=== PATIENT | male | born 1950 | race African-American/Black ===

== ENCOUNTER 2021-08-18 04:50 | Inpatient (IN) | payer OTHER ==
[~2021-08-18] VITALS: Ht 170.2 cm; Wt 71.7 kg
[2021-08-18] VITALS (58 sets, daily range): BP systolic 91–140; BP diastolic 61–90
[2021-08-18] MEDS ORDERED: LABETALOL 5MG/ML SYR 20 MG/4 ML SYRINGE IV SCH (05:30)
[2021-08-18] MEDS ORDERED: ETOMIDATE 2MG/ML 10ML VIAL IV ONE (05:30)
[2021-08-18] MEDS ORDERED: PROPOFOL 10MG/ML 100ML 100 ML IV ONE (05:30)
[2021-08-18] MEDS ORDERED: LEVETIRACETAM 1000MG PREMIX 100 ML IV ONE (05:30)
[2021-08-18] MEDS ORDERED: SUCCINYLCHOLINE CHLORIDE 200MG/10ML IV ONE (05:30)
[2021-08-18] MEDS ORDERED: LABETALOL 5MG/ML SYR 20 MG/4 ML SYRINGE IV ONE ×3 (05:45→06:30)
[2021-08-18] MEDS ORDERED: LABETALOL HCL 100 MG in DEXT 5% WATER 80 ML IV STA ×2 (05:54→06:23)
[2021-08-18] MEDS ORDERED: DEXAMETHASONE 10 MG/ML VIAL IV ONE (06:00)
[2021-08-18] MEDS ORDERED: MANNITOL 20% (20GM/100ML) BAG 500ML PREMIX IV SCH (06:00)
[2021-08-18 06:09] LABS: BASOPHILS % 0.1 % (0.0-2.0); EOSINOPHILS % 0.1 % (0.0-5.0); HEMATOCRIT. 28.1 % (42.0-52.0); HEMOGLOBIN. 9.5 g/dL (14.0-18.0); LYMPHOCYTES % 17.8 % (20.0-50.0); MEAN CORPUSCULAR HEMOGLOBIN 28.6 pg (28.0-32.0); MEAN CORPUSCULAR VOLUME 84.4 fL (80.0-94.0); MEAN PLATELET VOLUME 8.5 fl (7.4-10.4); MONOCYTES % 7.8 % (2.0-8.0); NEUTROPHILS % 74.2 % (40.0-76.0); PLATELET 84 x1000/uL (130-400); RED BLOOD CELL COUNT 3.33 mill/uL (4.7-6.1); RED CELL DISTRIBUTION WIDTH 15.3 % (11.6-14.6)
[2021-08-18 06:16] LABS: CHLORIDE 122 mEq/L (98-107)
[2021-08-18 06:27] LABS: ETHANOL BLOOD < 10 mg/dL
[2021-08-18] MEDS ORDERED: MORPHINE SULFATE 4 MG/ML CPJ (NOT FOR IM USE) IV SCH (06:30)
[2021-08-18] MEDS ORDERED: NICARDIPINE 100 MG in SODIUM CHLORIDE 0.9% 60 ML IV PRN ×2 (06:30→06:45)
[2021-08-18 07:51] LABS: INR 1.4; PROTHROMBIN TIME 14.6 sec (9.6-11.0)
[2021-08-18] MEDS ORDERED: ONDANSETRON HCL 4MG/2ML INJ IV PRN (08:00)
[2021-08-18] MEDS ORDERED: ACETAMINOPHEN 325MG TABLET PO PRN (08:00)
[2021-08-18] MEDS ORDERED: DEXT 5%/0.45% NACL 1000ML 1,000 ML IV SCH (08:43)
[2021-08-18] MEDS ORDERED: LEVETIRACETAM 500 MG in SODIUM CHLORIDE 0.9% 100 ML IV SCH (09:30)
[2021-08-18 09:57] LABS: BG BASE EXCESS -9.8 mmol/L (-2.0-2.0); BG CARBOXYHEMOGLOBIN 0.2 % (0.5-1.5); BG DEOXYHEMOGLOBIN 1.1 % (0.0-5.0); BG FRACTION INSPIRED OXYGEN 50; BG HCO3 ACT 13.3 mmol/L (22.0-26.0); BG METHEMOGLOBIN 0.3 % (0.0-1.5); BG OXYGEN SATURATION 98.9 % (92.0-98.5); BG OXYHEMOGLOBIN 98.4 % (94.0-97.0); BG PEEP (cmH2O) 0 cmH2O; BG PH 7.419 (7.350-7.450); BG SAMPLE SITE LEFT BRACHIAL; BG TOTAL HEMOGLOBIN 8.5 g/dL (12.0-18.0); BG VENT MODE VENT - AC
[2021-08-18] MEDS: PROPOFOL 10MG/ML 100ML 100 ML IV PRN ×2 (10:23→19:58)
[2021-08-18] MEDS: BLOOD SUGAR DIAGNOSTIC STRIP TEST SCH ×3 (11:23→20:23)
[2021-08-18] MEDS ORDERED: CEFAZOLIN 1000MG PREMIX 50 ML IV SCH (12:00)
[2021-08-18] MEDS: INSULIN LISPRO 100 UNITS/ML SUBCUT SCH ×3 (12:47→20:23)
[2021-08-18] MEDS: PANTOPRAZOLE SODIUM 40 MG/VIAL IV SCH (13:35)
[2021-08-18] MEDS ORDERED: SODIUM BICARBONATE 150 MEQ in DEXTROSE 5% WATER 1,000 ML IV SCH (14:00)
[2021-08-18] MEDS ORDERED: PROPOFOL 10MG/ML 100ML 100 ML IV PRN (15:00)
[2021-08-18] MEDS: METRONIDAZOLE 500 MG PREMIX 100 ML IV SCH ×2 (15:00→21:45)
[2021-08-18] MEDS ORDERED: SODIUM BICARBONATE 8.4% 1 MEQ/ML 50ML SYR IV NR (20:15)
[2021-08-18] MEDS: IPRATROPIUM/ALBUTEROL 0.5-3(2.5)MG/3ML NEB HHN SCH (20:55)
[2021-08-18] MEDS: LEVETIRACETAM 500MG PREMIX 100 ML IV SCH (20:57)
[2021-08-18] MEDS: MORPHINE SULFATE 4 MG/ML CPJ (NOT FOR IM USE) IV PRN (22:09)
[2021-08-18] MEDS: CEFAZOLIN 500MG in DEXTROSE 5% WATER 50ML IV SCH (23:17)
[2021-08-19] VITALS (87 sets, daily range): BP systolic 93–139; BP diastolic 61–89
[2021-08-19] MEDS: MORPHINE SULFATE 4 MG/ML CPJ (NOT FOR IM USE) IV PRN ×2 (00:34→21:00)
[2021-08-19] MEDS: IPRATROPIUM/ALBUTEROL 0.5-3(2.5)MG/3ML NEB HHN SCH ×4 (02:24→21:48)
[2021-08-19] MEDS: METRONIDAZOLE 500 MG PREMIX 100 ML IV SCH ×3 (05:24→21:35)
[2021-08-19] MEDS: BLOOD SUGAR DIAGNOSTIC STRIP TEST SCH ×4 (05:38→21:00)
[2021-08-19] MEDS: INSULIN LISPRO 100 UNITS/ML SUBCUT SCH ×4 (05:38→21:00)
[2021-08-19 05:49] LABS: HEMATOCRIT. 22.3 % (42.0-52.0); HEMOGLOBIN. 7.7 g/dL (14.0-18.0); LYMPHOCYTES % 9.9 % (20.0-50.0); MEAN CORPUSCULAR VOLUME 83.9 fL (80.0-94.0); MEAN PLATELET VOLUME 9.7 fl (7.4-10.4); MONOCYTES % 6.7 % (2.0-8.0); NEUTROPHILS % 83.4 % (40.0-76.0); PLATELET 58 x1000/uL (130-400); RED BLOOD CELL COUNT 2.66 mill/uL (4.7-6.1); RED CELL DISTRIBUTION WIDTH 14.7 % (11.6-14.6)
[2021-08-19 06:01] LABS: CHLORIDE 118 mEq/L (98-107)
[2021-08-19 06:19] LABS: CREATINE KINASE 77 IU/L (39-308)
[2021-08-19 08:39] LABS: BG CARBOXYHEMOGLOBIN 0.3 % (0.5-1.5); BG DEOXYHEMOGLOBIN 1.5 % (0.0-5.0); BG FRACTION INSPIRED OXYGEN 40; BG HCO3 ACT 13.1 mmol/L (22.0-26.0); BG METHEMOGLOBIN 0.4 % (0.0-1.5); BG OXYGEN SATURATION 98.5 % (92.0-98.5); BG OXYHEMOGLOBIN 97.8 % (94.0-97.0); BG PH 7.372 (7.350-7.450); BG PO2 199.8 mmHg (75.0-100.0); BG SAMPLE SITE RIGHT RADIAL; BG TOTAL HEMOGLOBIN 7.2 g/dL (12.0-18.0); BG VENT MODE VENT - AC
[2021-08-19] MEDS: PANTOPRAZOLE SODIUM 40 MG/VIAL IV SCH (09:24)
[2021-08-19] MEDS: LEVETIRACETAM 500MG PREMIX 100 ML IV SCH ×2 (09:24→20:52)
[2021-08-19] MEDS ORDERED: ATOR40TA70 MT (09:44)
[2021-08-19] MEDS ORDERED: P20 PO (09:45)
[2021-08-19] MEDS ORDERED: AMLO10TA80 PO (09:46)
[2021-08-19] MEDS ORDERED: FURO-152 PO (09:47)
[2021-08-19] MEDS ORDERED: ATEN50TA PO (09:47)
[2021-08-19] MEDS: SODIUM BICARBONATE 150 MEQ in DEXTROSE 5% WATER 1,000 ML IV SCH (11:33)
[2021-08-19] MEDS: CEFAZOLIN 500MG in DEXTROSE 5% WATER 50ML IV SCH (12:07)
[2021-08-19 12:48] LABS: HEPATITIS B SURFACE ANTIGEN NEGATIVE
[2021-08-19] MEDS ORDERED: HEPARIN 1000 UNITS/ML 10ML ONE (13:02)
[2021-08-19] MEDS: PROPOFOL 10MG/ML 100ML 100 ML IV PRN (18:30)
[2021-08-20] VITALS (99 sets, daily range): BP systolic 38–191; BP diastolic 24–140
[2021-08-20] MEDS: CEFAZOLIN 500MG in DEXTROSE 5% WATER 50ML IV SCH ×2 (00:33→12:51)
[2021-08-20] MEDS: IPRATROPIUM/ALBUTEROL 0.5-3(2.5)MG/3ML NEB HHN SCH ×3 (00:55→19:50)
[2021-08-20] MEDS: PROPOFOL 10MG/ML 100ML 100 ML IV PRN (02:34)
[2021-08-20] MEDS: MORPHINE SULFATE 4 MG/ML CPJ (NOT FOR IM USE) IV PRN ×2 (04:14→21:10)
[2021-08-20 04:21] LABS: BASOPHILS % 0.4 % (0.0-2.0); HEMATOCRIT. 27.3 % (42.0-52.0); HEMOGLOBIN. 9.6 g/dL (14.0-18.0); LYMPHOCYTES % 14.8 % (20.0-50.0); MEAN CORPUSCULAR HEMOGLOBIN 28.4 pg (28.0-32.0); MEAN CORPUSCULAR VOLUME 80.8 fL (80.0-94.0); MEAN PLATELET VOLUME 8.3 fl (7.4-10.4); MONOCYTES % 7.5 % (2.0-8.0); NEUTROPHILS % 77.3 % (40.0-76.0); PLATELET 81 x1000/uL (130-400); RED BLOOD CELL COUNT 3.37 mill/uL (4.7-6.1); RED CELL DISTRIBUTION WIDTH 15.2 % (11.6-14.6)
[2021-08-20] MEDS: METRONIDAZOLE 500 MG PREMIX 100 ML IV SCH ×3 (05:29→23:24)
[2021-08-20] MEDS: NOREPINEPHRINE 32 MG in DEXT 5% WATER 218 ML IV PRN (06:24)
[2021-08-20] MEDS: BLOOD SUGAR DIAGNOSTIC STRIP TEST SCH ×4 (06:28→20:52)
[2021-08-20] MEDS: INSULIN LISPRO 100 UNITS/ML SUBCUT SCH ×4 (06:28→20:56)
[2021-08-20] MEDS: SODIUM BICARBONATE 150 MEQ in DEXTROSE 5% WATER 1,000 ML IV SCH (08:51)
[2021-08-20] MEDS: PANTOPRAZOLE SODIUM 40 MG/VIAL IV SCH (08:53)
[2021-08-20] MEDS: LEVETIRACETAM 500MG PREMIX 100 ML IV SCH ×2 (08:53→20:55)
[2021-08-20 11:09] LABS: BG BASE EXCESS -2.3 mmol/L (-2.0-2.0); BG CARBOXYHEMOGLOBIN 0.3 % (0.5-1.5); BG DEOXYHEMOGLOBIN 1.9 % (0.0-5.0); BG FRACTION INSPIRED OXYGEN 40; BG HCO3 ACT 18.6 mmol/L (22.0-26.0); BG METHEMOGLOBIN 0.4 % (0.0-1.5); BG OXYGEN SATURATION 98.1 % (92.0-98.5); BG OXYHEMOGLOBIN 97.4 % (94.0-97.0); BG PCO2 19.2 mmHg (35.0-45.0); BG PH 7.603 (7.350-7.450); BG PO2 150.8 mmHg (75.0-100.0); BG SAMPLE SITE RIGHT RADIAL; BG TOTAL HEMOGLOBIN 7.4 g/dL (12.0-18.0); BG VENT MODE VENT - AC
[2021-08-21] VITALS (89 sets, daily range): BP systolic 63–169; BP diastolic 38–97
[2021-08-21] MEDS: CEFAZOLIN 500MG in DEXTROSE 5% WATER 50ML IV SCH ×3 (00:59→23:29)
[2021-08-21] MEDS: IPRATROPIUM/ALBUTEROL 0.5-3(2.5)MG/3ML NEB HHN SCH ×4 (01:59→20:12)
[2021-08-21 04:42] LABS: BASOPHILS % 0.1 % (0.0-2.0); EOSINOPHILS % 0.2 % (0.0-5.0); HEMATOCRIT. 23.5 % (42.0-52.0); HEMOGLOBIN. 8.2 g/dL (14.0-18.0); LYMPHOCYTES % 18.5 % (20.0-50.0); MEAN CORPUSCULAR HEMOGLOBIN 28.5 pg (28.0-32.0); MEAN CORPUSCULAR VOLUME 81.7 fL (80.0-94.0); MEAN PLATELET VOLUME 8.8 fl (7.4-10.4); MONOCYTES % 8.3 % (2.0-8.0); NEUTROPHILS % 72.9 % (40.0-76.0); PLATELET 66 x1000/uL (130-400); RED BLOOD CELL COUNT 2.88 mill/uL (4.7-6.1); RED CELL DISTRIBUTION WIDTH 15.3 % (11.6-14.6)
[2021-08-21] MEDS: INSULIN LISPRO 100 UNITS/ML SUBCUT SCH ×4 (06:09→20:58)
[2021-08-21] MEDS: BLOOD SUGAR DIAGNOSTIC STRIP TEST SCH ×4 (06:09→20:58)
[2021-08-21] MEDS: METRONIDAZOLE 500 MG PREMIX 100 ML IV SCH ×3 (06:09→20:58)
[2021-08-21] MEDS ORDERED: NALOXONE HCL 0.4MG/ML VIAL IV PRN (07:30)
[2021-08-21] MEDS: PANTOPRAZOLE SODIUM 40 MG/VIAL IV SCH (08:01)
[2021-08-21] MEDS: LEVETIRACETAM 500MG PREMIX 100 ML IV SCH ×2 (08:02→20:58)
[2021-08-21 08:56] LABS: BG BASE EXCESS -0.7 mmol/L (-2.0-2.0); BG CARBOXYHEMOGLOBIN 0.3 % (0.5-1.5); BG DEOXYHEMOGLOBIN 1.2 % (0.0-5.0); BG FRACTION INSPIRED OXYGEN 40; BG HCO3 ACT 19.3 mmol/L (22.0-26.0); BG METHEMOGLOBIN 0.3 % (0.0-1.5); BG OXYGEN SATURATION 98.8 % (92.0-98.5); BG OXYHEMOGLOBIN 98.2 % (94.0-97.0); BG PCO2 18.2 mmHg (35.0-45.0); BG PH 7.643 (7.350-7.450); BG PO2 173.7 mmHg (75.0-100.0); BG SAMPLE SITE RIGHT RADIAL; BG TOTAL HEMOGLOBIN 8.1 g/dL (12.0-18.0); BG VENT MODE VENT - AC
[2021-08-21] MEDS: NOREPINEPHRINE 32 MG in DEXT 5% WATER 218 ML IV PRN (22:50)
[2021-08-22] VITALS (88 sets, daily range): BP systolic 72–186; BP diastolic 46–108
[2021-08-22] MEDS: IPRATROPIUM/ALBUTEROL 0.5-3(2.5)MG/3ML NEB HHN SCH ×4 (02:15→21:15)
[2021-08-22] MEDS: BLOOD SUGAR DIAGNOSTIC STRIP TEST SCH ×4 (05:10→21:02)
[2021-08-22] MEDS: METRONIDAZOLE 500 MG PREMIX 100 ML IV SCH ×3 (05:23→22:16)
[2021-08-22] MEDS: INSULIN LISPRO 100 UNITS/ML SUBCUT SCH ×4 (05:44→21:00)
[2021-08-22 05:59] LABS: BASOPHILS % 0.2 % (0.0-2.0); EOSINOPHILS % 0.2 % (0.0-5.0); HEMOGLOBIN. 7.4 g/dL (14.0-18.0); LYMPHOCYTES % 15.3 % (20.0-50.0); MEAN CORPUSCULAR VOLUME 83.2 fL (80.0-94.0); MEAN PLATELET VOLUME 9.3 fl (7.4-10.4); MONOCYTES % 7.9 % (2.0-8.0); NEUTROPHILS % 76.4 % (40.0-76.0); RED BLOOD CELL COUNT 2.65 mill/uL (4.7-6.1); RED CELL DISTRIBUTION WIDTH 15.3 % (11.6-14.6)
[2021-08-22 06:31] LABS: PHOSPHORUS 3.5 mg/dL (2.5-4.9)
[2021-08-22 07:06] LABS: PLATELET 44 x1000/uL (130-400)
[2021-08-22] MEDS: PANTOPRAZOLE SODIUM 40 MG/VIAL IV SCH (09:00)
[2021-08-22] MEDS: LEVETIRACETAM 500MG PREMIX 100 ML IV SCH ×2 (09:00→21:02)
[2021-08-22 10:49] LABS: BG BASE EXCESS -0.9 mmol/L (-2.0-2.0); BG CARBOXYHEMOGLOBIN 0.3 % (0.5-1.5); BG DEOXYHEMOGLOBIN 1.4 % (0.0-5.0); BG FRACTION INSPIRED OXYGEN 40; BG HCO3 ACT 20.5 mmol/L (22.0-26.0); BG METHEMOGLOBIN 0.6 % (0.0-1.5); BG OXYGEN SATURATION 98.6 % (92.0-98.5); BG OXYHEMOGLOBIN 97.7 % (94.0-97.0); BG PCO2 22.1 mmHg (35.0-45.0); BG PH 7.585 (7.350-7.450); BG PO2 186.4 mmHg (75.0-100.0); BG SAMPLE SITE RIGHT RADIAL; BG TOTAL HEMOGLOBIN 7.2 g/dL (12.0-18.0); BG VENT MODE VENT - AC
[2021-08-22] MEDS: CEFAZOLIN 500MG in DEXTROSE 5% WATER 50ML IV SCH ×2 (11:46→23:16)
[2021-08-22 13:24] LABS: PLATELET ESTIMATE MARKEDLY DECREASED
[2021-08-23] VITALS (97 sets, daily range): BP systolic 61–185; BP diastolic 38–100
[2021-08-23] MEDS: IPRATROPIUM/ALBUTEROL 0.5-3(2.5)MG/3ML NEB HHN SCH ×4 (01:10→20:24)
[2021-08-23] MEDS: METRONIDAZOLE 500 MG PREMIX 100 ML IV SCH ×2 (05:44→15:40)
[2021-08-23] MEDS: BLOOD SUGAR DIAGNOSTIC STRIP TEST SCH ×4 (05:54→21:21)
[2021-08-23] MEDS: INSULIN LISPRO 100 UNITS/ML SUBCUT SCH ×4 (05:55→21:00)
[2021-08-23 07:32] LABS: BG BASE EXCESS 1.6 mmol/L (-2.0-2.0); BG CARBOXYHEMOGLOBIN 0.3 % (0.5-1.5); BG DEOXYHEMOGLOBIN 1.5 % (0.0-5.0); BG HCO3 ACT 22.5 mmol/L (22.0-26.0); BG METHEMOGLOBIN 0.5 % (0.0-1.5); BG OXYGEN SATURATION 98.5 % (92.0-98.5); BG OXYHEMOGLOBIN 97.7 % (94.0-97.0); BG PCO2 21.8 mmHg (35.0-45.0); BG PH 7.631 (7.350-7.450); BG PO2 205.5 mmHg (75.0-100.0); BG SAMPLE SITE RIGHT RADIAL; BG TOTAL HEMOGLOBIN 6.9 g/dL (12.0-18.0); BG VENT MODE VENT - AC
[2021-08-23] MEDS: LEVETIRACETAM 500MG PREMIX 100 ML IV SCH ×2 (08:50→20:15)
[2021-08-23] MEDS: PANTOPRAZOLE SODIUM 40 MG/VIAL IV SCH (08:50)
[2021-08-23] MEDS: METOCLOPRAMIDE HCL 10MG/2ML VIAL IV SCH ×3 (11:55→23:06)
[2021-08-24] VITALS (94 sets, daily range): BP systolic 66–144; BP diastolic 39–90
[2021-08-24] MEDS: IPRATROPIUM/ALBUTEROL 0.5-3(2.5)MG/3ML NEB HHN SCH ×4 (01:35→21:07)
[2021-08-24] MEDS: BLOOD SUGAR DIAGNOSTIC STRIP TEST SCH ×4 (05:21→20:57)
[2021-08-24] MEDS: METOCLOPRAMIDE HCL 10MG/2ML VIAL IV SCH ×3 (05:21→18:56)
[2021-08-24] MEDS: INSULIN LISPRO 100 UNITS/ML SUBCUT SCH ×4 (05:21→20:57)
[2021-08-24 05:59] LABS: BASOPHILS % 0.1 % (0.0-2.0); EOSINOPHILS % 0.1 % (0.0-5.0); LYMPHOCYTES % 7.7 % (20.0-50.0); MEAN CORPUSCULAR HEMOGLOBIN 28.7 pg (28.0-32.0); MEAN CORPUSCULAR VOLUME 84.3 fL (80.0-94.0); MEAN PLATELET VOLUME 8.7 fl (7.4-10.4); MONOCYTES % 3.5 % (2.0-8.0); NEUTROPHILS % 88.6 % (40.0-76.0); RED BLOOD CELL COUNT 2.41 mill/uL (4.7-6.1); RED CELL DISTRIBUTION WIDTH 14.9 % (11.6-14.6)
[2021-08-24 06:19] LABS: HEMATOCRIT. 20.3 % (42.0-52.0); HEMOGLOBIN. 6.9 g/dL (14.0-18.0); PLATELET 22 x1000/uL (130-400)
[2021-08-24 08:29] LABS: BG BASE EXCESS 1.9 mmol/L (-2.0-2.0); BG CARBOXYHEMOGLOBIN 0.2 % (0.5-1.5); BG DEOXYHEMOGLOBIN 1.5 % (0.0-5.0); BG FRACTION INSPIRED OXYGEN 30; BG HCO3 ACT 23.8 mmol/L (22.0-26.0); BG METHEMOGLOBIN 0.6 % (0.0-1.5); BG OXYGEN SATURATION 98.5 % (92.0-98.5); BG OXYHEMOGLOBIN 97.7 % (94.0-97.0); BG PCO2 26.3 mmHg (35.0-45.0); BG PH 7.574 (7.350-7.450); BG PO2 159.5 mmHg (75.0-100.0); BG SAMPLE SITE LEFT RADIAL; BG TOTAL HEMOGLOBIN 7.1 g/dL (12.0-18.0); BG VENT MODE VENT - AC
[2021-08-24] MEDS: PANTOPRAZOLE SODIUM 40 MG/VIAL IV SCH (09:44)
[2021-08-24] MEDS: LEVETIRACETAM 500MG PREMIX 100 ML IV SCH ×2 (09:44→20:42)
[2021-08-25] VITALS (91 sets, daily range): BP systolic 60–152; BP diastolic 43–91
[2021-08-25] MEDS: IPRATROPIUM/ALBUTEROL 0.5-3(2.5)MG/3ML NEB HHN SCH ×4 (00:52→20:57)
[2021-08-25] MEDS: METOCLOPRAMIDE HCL 10MG/2ML VIAL IV SCH ×4 (01:34→17:48)
[2021-08-25] MEDS: INSULIN LISPRO 100 UNITS/ML SUBCUT SCH ×4 (06:35→21:00)
[2021-08-25] MEDS: BLOOD SUGAR DIAGNOSTIC STRIP TEST SCH ×4 (06:35→21:00)
[2021-08-25 07:54] LABS: BG BASE EXCESS 1.4 mmol/L (-2.0-2.0); BG CARBOXYHEMOGLOBIN 0.2 % (0.5-1.5); BG HCO3 ACT 24.2 mmol/L (22.0-26.0); BG METHEMOGLOBIN 0.5 % (0.0-1.5); BG OXYHEMOGLOBIN 97.3 % (94.0-97.0); BG PCO2 30.7 mmHg (35.0-45.0); BG PH 7.515 (7.350-7.450); BG PO2 126.3 mmHg (75.0-100.0); BG SAMPLE SITE RIGHT RADIAL; BG TOTAL HEMOGLOBIN 7.3 g/dL (12.0-18.0); BG VENT MODE VENT - SIMV
[2021-08-25] MEDS: PANTOPRAZOLE SODIUM 40 MG/VIAL IV SCH (08:43)
[2021-08-25] MEDS: LEVETIRACETAM 500MG PREMIX 100 ML IV SCH ×2 (08:43→22:11)
[2021-08-26] VITALS (93 sets, daily range): BP systolic 75–188; BP diastolic 48–99
[2021-08-26] MEDS: METOCLOPRAMIDE HCL 10MG/2ML VIAL IV SCH ×5 (00:21→23:54)
[2021-08-26] MEDS ORDERED: IPRATROPIUM/ALBUTEROL 0.5-3(2.5)MG/3ML NEB ONE (02:15)
[2021-08-26] MEDS: IPRATROPIUM/ALBUTEROL 0.5-3(2.5)MG/3ML NEB HHN SCH ×4 (02:18→20:59)
[2021-08-26] MEDS: BLOOD SUGAR DIAGNOSTIC STRIP TEST SCH ×4 (06:06→21:00)
[2021-08-26] MEDS: INSULIN LISPRO 100 UNITS/ML SUBCUT SCH ×4 (07:00→21:00)
[2021-08-26] MEDS: LEVETIRACETAM 500MG PREMIX 100 ML IV SCH ×2 (08:06→21:17)
[2021-08-26] MEDS: PANTOPRAZOLE SODIUM 40 MG/VIAL IV SCH (08:06)
[2021-08-26] MEDS ORDERED: DOPAMINE 400MG/250ML PREMIX 250 ML IV ONE (21:33)
[2021-08-26] MEDS: DOPAMINE 400MG/250ML PREMIX 250 ML IV PRN (21:59)
[2021-08-27] VITALS (97 sets, daily range): BP systolic 53–176; BP diastolic 32–117
[2021-08-27] MEDS: IPRATROPIUM/ALBUTEROL 0.5-3(2.5)MG/3ML NEB HHN SCH ×4 (02:02→21:13)
[2021-08-27] MEDS: BLOOD SUGAR DIAGNOSTIC STRIP TEST SCH ×4 (05:58→21:03)
[2021-08-27] MEDS: METOCLOPRAMIDE HCL 10MG/2ML VIAL IV SCH ×3 (06:00→18:10)
[2021-08-27] MEDS: INSULIN LISPRO 100 UNITS/ML SUBCUT SCH ×4 (07:00→21:00)
[2021-08-27] MEDS: LEVETIRACETAM 500MG PREMIX 100 ML IV SCH ×2 (08:09→20:29)
[2021-08-27] MEDS: PANTOPRAZOLE SODIUM 40 MG/VIAL IV SCH (08:09)
[2021-08-27] MEDS ORDERED: IPRATROPIUM/ALBUTEROL 0.5-3(2.5)MG/3ML NEB ONE ×2 (08:28→12:10)
[2021-08-27 08:36] LABS: BG BASE EXCESS -0.1 mmol/L (-2.0-2.0); BG CARBOXYHEMOGLOBIN 0.3 % (0.5-1.5); BG DEOXYHEMOGLOBIN 2.4 % (0.0-5.0); BG HCO3 ACT 20.6 mmol/L (22.0-26.0); BG METHEMOGLOBIN 0.3 % (0.0-1.5); BG OXYGEN SATURATION 97.6 % (92.0-98.5); BG PCO2 20.7 mmHg (35.0-45.0); BG PH 7.615 (7.350-7.450); BG PO2 109.3 mmHg (75.0-100.0); BG SAMPLE SITE RIGHT RADIAL; BG VENT MODE VENT - SIMV
[2021-08-28] VITALS (92 sets, daily range): BP systolic 61–214; BP diastolic 39–126
[2021-08-28] MEDS: METOCLOPRAMIDE HCL 10MG/2ML VIAL IV SCH ×4 (00:03→18:09)
[2021-08-28] MEDS: DOPAMINE 400MG/250ML PREMIX 250 ML IV PRN ×2 (00:25→21:05)
[2021-08-28] MEDS: IPRATROPIUM/ALBUTEROL 0.5-3(2.5)MG/3ML NEB HHN SCH ×4 (01:12→20:35)
[2021-08-28] MEDS: INSULIN LISPRO 100 UNITS/ML SUBCUT SCH ×4 (07:20→21:00)
[2021-08-28] MEDS: LEVETIRACETAM 500MG PREMIX 100 ML IV SCH ×2 (09:46→20:40)
[2021-08-28] MEDS: PANTOPRAZOLE SODIUM 40 MG/VIAL IV SCH (09:47)
[2021-08-28] MEDS: BLOOD SUGAR DIAGNOSTIC STRIP TEST SCH ×4 (11:30→21:00)
[2021-08-29] VITALS (97 sets, daily range): BP systolic 86–140; BP diastolic 56–91
[2021-08-29] MEDS: METOCLOPRAMIDE HCL 10MG/2ML VIAL IV SCH ×5 (00:05→23:21)
[2021-08-29] MEDS: IPRATROPIUM/ALBUTEROL 0.5-3(2.5)MG/3ML NEB HHN SCH ×4 (02:20→20:22)
[2021-08-29] MEDS: BLOOD SUGAR DIAGNOSTIC STRIP TEST SCH ×4 (06:30→23:21)
[2021-08-29] MEDS: INSULIN LISPRO 100 UNITS/ML SUBCUT SCH ×4 (07:00→23:21)
[2021-08-29 09:13] LABS: BG CARBOXYHEMOGLOBIN 0.3 % (0.5-1.5); BG DEOXYHEMOGLOBIN 1.3 % (0.0-5.0); BG FRACTION INSPIRED OXYGEN 30; BG HCO3 ACT 19.1 mmol/L (22.0-26.0); BG METHEMOGLOBIN 0.3 % (0.0-1.5); BG OXYGEN SATURATION 98.7 % (92.0-98.5); BG OXYHEMOGLOBIN 98.1 % (94.0-97.0); BG PCO2 23.8 mmHg (35.0-45.0); BG PH 7.523 (7.350-7.450); BG PO2 140.7 mmHg (75.0-100.0); BG SAMPLE SITE RIGHT RADIAL; BG TOTAL HEMOGLOBIN 7.5 g/dL (12.0-18.0); BG VENT MODE VENT - AC
[2021-08-29] MEDS: PANTOPRAZOLE SODIUM 40 MG/VIAL IV SCH (09:48)
[2021-08-29] MEDS: LEVETIRACETAM 500MG PREMIX 100 ML IV SCH ×2 (09:48→21:13)
[2021-08-29] MEDS ORDERED: LIDOCAINE HCL 1% 10 MG/ML 10ML VIAL ONE (11:03)
[2021-08-29] MEDS: DOPAMINE 400MG/250ML PREMIX 250 ML IV PRN (19:29)
[2021-08-30] VITALS (98 sets, daily range): BP systolic 68–150; BP diastolic 47–99
[2021-08-30] MEDS: IPRATROPIUM/ALBUTEROL 0.5-3(2.5)MG/3ML NEB HHN SCH ×3 (04:22→20:22)
[2021-08-30] MEDS: BLOOD SUGAR DIAGNOSTIC STRIP TEST SCH ×3 (05:40→18:25)
[2021-08-30] MEDS: METOCLOPRAMIDE HCL 10MG/2ML VIAL IV SCH ×3 (05:40→18:25)
[2021-08-30] MEDS: INSULIN LISPRO 100 UNITS/ML SUBCUT SCH ×3 (05:40→18:00)
[2021-08-30 08:33] LABS: BG BASE EXCESS -6.5 mmol/L (-2.0-2.0); BG CARBOXYHEMOGLOBIN 0.3 % (0.5-1.5); BG DEOXYHEMOGLOBIN 5.3 % (0.0-5.0); BG HCO3 ACT 19.5 mmol/L (22.0-26.0); BG METHEMOGLOBIN 0.3 % (0.0-1.5); BG OXYGEN SATURATION 94.7 % (92.0-98.5); BG OXYHEMOGLOBIN 94.1 % (94.0-97.0); BG PCO2 40.6 mmHg (35.0-45.0); BG PH 7.299 (7.350-7.450); BG SAMPLE SITE RIGHT RADIAL; BG TOTAL HEMOGLOBIN 8.9 g/dL (12.0-18.0); BG VENT MODE VENT - AC
[2021-08-30] MEDS: LEVETIRACETAM 500MG PREMIX 100 ML IV SCH ×2 (08:56→21:14)
[2021-08-30] MEDS: PANTOPRAZOLE SODIUM 40 MG/VIAL IV SCH (08:56)
[2021-08-30 09:00] LABS: BG CARBOXYHEMOGLOBIN 0.3 % (0.5-1.5); BG DEOXYHEMOGLOBIN 1.8 % (0.0-5.0); BG HCO3 ACT 17.7 mmol/L (22.0-26.0); BG OXYGEN SATURATION 98.2 % (92.0-98.5); BG OXYHEMOGLOBIN 97.9 % (94.0-97.0); BG PCO2 26.1 mmHg (35.0-45.0); BG PO2 130.3 mmHg (75.0-100.0); BG SAMPLE SITE RIGHT RADIAL; BG TOTAL HEMOGLOBIN 11.2 g/dL (12.0-18.0); BG VENT MODE VENT - AC
[2021-08-30] MEDS: DOPAMINE 400MG/250ML PREMIX 250 ML IV PRN ×2 (11:16→18:26)
[2021-08-30 11:17] LABS: BG BASE EXCESS -7.4 mmol/L (-2.0-2.0); BG CARBOXYHEMOGLOBIN 0.2 % (0.5-1.5); BG DEOXYHEMOGLOBIN 1.1 % (0.0-5.0); BG FRACTION INSPIRED OXYGEN 100; BG HCO3 ACT 17.7 mmol/L (22.0-26.0); BG METHEMOGLOBIN 0.6 % (0.0-1.5); BG OXYGEN SATURATION 98.9 % (92.0-98.5); BG OXYHEMOGLOBIN 98.1 % (94.0-97.0); BG PCO2 33.6 mmHg (35.0-45.0); BG PH 7.339 (7.350-7.450); BG PO2 290.2 mmHg (75.0-100.0); BG SAMPLE SITE RIGHT RADIAL; BG TOTAL HEMOGLOBIN 7.9 g/dL (12.0-18.0); BG VENT MODE VENT - AC
[2021-08-30 13:00] LABS: BG BASE EXCESS -8.2 mmol/L (-2.0-2.0); BG CARBOXYHEMOGLOBIN 0.2 % (0.5-1.5); BG DEOXYHEMOGLOBIN 4.8 % (0.0-5.0); BG FRACTION INSPIRED OXYGEN 44; BG METHEMOGLOBIN 0.6 % (0.0-1.5); BG OXYGEN SATURATION 95.2 % (92.0-98.5); BG OXYHEMOGLOBIN 94.4 % (94.0-97.0); BG PCO2 47.1 mmHg (35.0-45.0); BG PH 7.224 (7.350-7.450); BG PO2 101.1 mmHg (75.0-100.0); BG SAMPLE SITE RIGHT RADIAL; BG TOTAL HEMOGLOBIN 8.5 g/dL (12.0-18.0); BG VENT MODE APNEA TEST
[2021-08-30 14:14] LABS: BG BASE EXCESS -7.5 mmol/L (-2.0-2.0); BG CARBOXYHEMOGLOBIN 0.3 % (0.5-1.5); BG DEOXYHEMOGLOBIN 1.5 % (0.0-5.0); BG HCO3 ACT 16.6 mmol/L (22.0-26.0); BG METHEMOGLOBIN 0.1 % (0.0-1.5); BG OXYGEN SATURATION 98.5 % (92.0-98.5); BG OXYHEMOGLOBIN 98.1 % (94.0-97.0); BG PCO2 28.6 mmHg (35.0-45.0); BG PH 7.382 (7.350-7.450); BG PO2 197.2 mmHg (75.0-100.0); BG SAMPLE SITE RIGHT RADIAL; BG TOTAL HEMOGLOBIN 8.4 g/dL (12.0-18.0); BG VENT MODE VENT - AC
[2021-08-30] MEDS: NOREPINEPHRINE 32 MG in DEXT 5% WATER 218 ML IV PRN (19:46)
[2021-08-31] VITALS (77 sets, daily range): BP systolic 54–153; BP diastolic 28–80
[2021-08-31] MEDS: DOPAMINE 400MG/250ML PREMIX 250 ML IV PRN ×3 (00:21→14:05)
[2021-08-31] MEDS: METOCLOPRAMIDE HCL 10MG/2ML VIAL IV SCH ×3 (00:38→11:58)
[2021-08-31] MEDS: BLOOD SUGAR DIAGNOSTIC STRIP TEST SCH ×3 (00:38→11:59)
[2021-08-31] MEDS: DEXTROSE 50% WATER 50ML SYRINGE IV PRN ×4 (00:41→11:58)
[2021-08-31] MEDS: IPRATROPIUM/ALBUTEROL 0.5-3(2.5)MG/3ML NEB HHN SCH ×3 (02:07→13:32)
[2021-08-31] MEDS: INSULIN LISPRO 100 UNITS/ML SUBCUT SCH ×3 (05:15→11:59)
[2021-08-31] MEDS ORDERED: DEXTROSE 5% WATER 1,000 ML IV SCH (06:00)
[2021-08-31] MEDS ORDERED: DEXT 10% WATER 1,000 ML IV SCH ×2 (07:45→12:00)
[2021-08-31] MEDS: LEVETIRACETAM 500MG PREMIX 100 ML IV SCH (08:01)
[2021-08-31] MEDS: PANTOPRAZOLE SODIUM 40 MG/VIAL IV SCH (08:01)
[2021-08-31 09:35] LABS: BG BASE EXCESS -14.2 mmol/L (-2.0-2.0); BG CARBOXYHEMOGLOBIN 0.6 % (0.5-1.5); BG DEOXYHEMOGLOBIN 1.8 % (0.0-5.0); BG FRACTION INSPIRED OXYGEN 100; BG HCO3 ACT 12.5 mmol/L (22.0-26.0); BG METHEMOGLOBIN 0.9 % (0.0-1.5); BG OXYGEN SATURATION 98.2 % (92.0-98.5); BG OXYHEMOGLOBIN 96.7 % (94.0-97.0); BG PCO2 32.6 mmHg (35.0-45.0); BG PH 7.203 (7.350-7.450); BG PO2 143.5 mmHg (75.0-100.0); BG SAMPLE SITE RIGHT RADIAL; BG TOTAL HEMOGLOBIN 7.9 g/dL (12.0-18.0); BG VENT MODE VENT - AC
[2021-08-31] MEDS ORDERED: SODIUM BICARBONATE 8.4% 1 MEQ/ML 50ML SYR IV NR (10:45)
[2021-08-31] MEDS ORDERED: SODIUM BICARBONATE 100 MEQ in DEXTROSE 5% WATER 1,000 ML IV SCH (12:00)
[2021-08-31] MEDS: NOREPINEPHRINE 32 MG in DEXT 5% WATER 218 ML IV PRN ×2 (13:40→15:46)
[2021-08-31] MEDS ORDERED: PHENYLEPHRINE 100 MG in DEXT 5% WATER 240 ML IV PRN (14:00)
[2021-08-31] MEDS ORDERED: VASOPRESSIN 20 UNIT in SODIUM CHLORIDE 0.9% 99 ML IV PRN (15:00)
== END 2021-08-31 20:59 | DRG 23 ==
LOC: ER 04:50 → MICUSO 06:42 → ENRESERV 07:57 → MICUSO 12:15
PROVIDERS: ADMIT Hospitalist; ATTEND Hospitalist
PROC: 5A1955Z Respiratory Ventilation, Greater than 96 Consecutive Hours (ICD-10-PCS; principal; 2021-08-18)
PROC: 009600Z Drainage of Cerebral Ventricle with Drainage Device, Open Approach (ICD-10-PCS; 2021-08-18)
PROC: 0BH17EZ Insertion of Endotracheal Airway into Trachea, Via Natural or Artificial Opening (ICD-10-PCS; 2021-08-18)
PROC: 05HM33Z Insertion of Infusion Device into Right Internal Jugular Vein, Percutaneous Approach (ICD-10-PCS; 2021-08-19)
PROC: B543ZZA Ultrasonography of Right Jugular Veins, Guidance (ICD-10-PCS; 2021-08-19)
PROC: 02HV33Z Insertion of Infusion Device into Superior Vena Cava, Percutaneous Approach (ICD-10-PCS; 2021-08-29)
PROC: B548ZZA Ultrasonography of Superior Vena Cava, Guidance (ICD-10-PCS; 2021-08-29)
DX: I61.8 Other nontraumatic intracerebral hemorrhage (principal); J96.00 Acute respiratory failure, unspecified whether with hypoxia or hypercapnia; N17.0 Acute kidney failure with tubular necrosis; K85.90 Acute pancreatitis without necrosis or infection, unspecified; G93.40 Encephalopathy, unspecified; E44.1 Mild protein-calorie malnutrition; N17.9 Acute kidney failure, unspecified; G91.9 Hydrocephalus, unspecified; I16.1 Hypertensive emergency; E87.2 Acidosis; D63.8 Anemia in other chronic diseases classified elsewhere; E88.09 Other disorders of plasma-protein metabolism, not elsewhere classified; E83.51 Hypocalcemia; N18.9 Chronic kidney disease, unspecified; E11.22 Type 2 diabetes mellitus with diabetic chronic kidney disease; D69.6 Thrombocytopenia, unspecified; B19.20 Unspecified viral hepatitis C without hepatic coma; E11.65 Type 2 diabetes mellitus with hyperglycemia; I13.10 Hypertensive heart and chronic kidney disease without heart failure, with stage 1 through stage 4 chronic kidney disease, or unspecified chronic kidney disease; E87.70 Fluid overload, unspecified; Z86.73 Personal history of transient ischemic attack (TIA), and cerebral infarction without residual deficits; Z79.899 Other long term (current) drug therapy; I46.9 Cardiac arrest, cause unspecified
CPT/HCPCS: 36415; 36556; 36600; 71045; 76700; 76937; 78610; 80048; 80053; 80307; 80320; 80329; 82140; 82375; 82550; 82805; 82962; 83036; 83605; 84100; 84145; 84443; 84478; 85025; 86705; 86709; 86803; 87340; 93005; 94002; 94003; 94640; 95816; 99291; A6261; A9512; C1725; C1752; C1887; C9113; J0330; J0690; J1100; J1265; J1644; J1815; J1953; J2270; J2370; J2704; J2765; J3490; J7050; J7060; J7070; L8514; A4315; G0480